=== PATIENT | female | born 1930 | race Caucasian/White ===

== ENCOUNTER 2016-07-25 10:05 | Inpatient (IN) | payer MEDICARE, BC ==
[2016-07-25] VITALS (7 sets, daily range): BP systolic 147–201; BP diastolic 61–89; PULSE 92–107; RESP 16–20; TEMP 97.5–98.3; O2SAT 96–99
[~2016-07-25] VITALS: Ht 160 cm; Wt 58.2 kg
[~2016-07-25 10:05] MED LIST: AMBI10TA PO; AMLO5TAB2 PO; APIX5TAB PO; CIPR250T2 PO; CLON0.1T PO; LATA0.002 EACH EYE; LEVO.1 PO; LOSA100T PO; NEXI40CA PO
--- NOTE | 2016-07-25 10:43 | PD ---
HPI Chief Complaint: generalized weakness Time Seen by Provider: 10:31 Travel History International Travel<30 days: No Contact w/Intl Traveler<30days: No Traveled to known affect area: No History of Present Illness HPI The patient was seen and examined in the presence of the nurse. This patient called the ambulance crew she was having generalized weakness. She's been having it for one month and she is not getting any better and was frustrated with it. She has poor appetite. She is on a blood thinner for PE. She is not short of breath. She denies fever or vomiting or diarrhea. She has chronic unsteady gait. I have warned her to use a walker given her blood thinner and unsteady gait. Symptoms severity is moderate. No alleviating factors. She denies rectal bleeding or melena. She reports having a normal colonoscopy many years ago and no history of GI bleeding in the last 20 years. 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) GERD: Yes Genitourinary: Yes Headaches: Yes Hiatal Hernia: Yes Hypertension: Yes Immune Disorder: No Implanted Vascular Access Dvce: No Kidney Stones: No Musculoskeletal: Yes Neurologic: Yes Psychiatric: No Reproductive: No Respiratory: Yes Immunizations Current: Yes Migraines: No Radiation Therapy: No Renal Failure: No Seizures: No Sickle Cell Disease: No Sleep Apnea: Yes Thyroid Disease: Yes Ulcer: Yes Past Surgical History Abdominal Surgery: Yes (ABDOMINAL TUMOR REMOVED) AICD: No Arteriovenous Shunt: No Cardiac Surgery: No Ear Surgery: No Endocrine Surgery: Yes Eye Surgery: No Genitourinary Surgery: Yes Gynecologic Surgery: Yes (HYSTERECTOMY) Hysterectomy: Yes Insulin Pump: No Joint Replacement: No Neurologic Surgery: No Oral Surgery: No Pacemaker: Yes (DEMAND) Thoracic Surgery: No Other Surgery: Yes Social History Alcohol Use: No Tobacco Use: No (FORMER) Substance Use: No Allergies-Medications (Allergen,Severity, Reaction): Coded Allergies: No Known Allergies (Verified , 05/22/16) Reported Meds & Prescriptions Reported Meds & Active Scripts Active Eliquis (Apixaban) 5 Mg Tab 5 Mg PO BID Reported Losartan (Losartan Potassium) 100 Mg Tab 100 Mg PO DAILY Metoprolol Tartrate 25 Mg Tab 25 Mg PO DAILY Hydrochlorothiazide 12.5 Mg Tab 12.5 Mg PO DAILY Amlodipine (Amlodipine Besylate) 5 Mg Tab 5 Mg PO DAILY Clonidine (Clonidine HCl) 0.1 Mg Tab 0.1 Mg PO TID PRN Review of Systems General / Constitutional: No: Fever Eyes: No: Visual changes HENT: No: Headaches Cardiovascular: No: Chest Pain or Discomfort Respiratory: No: Shortness of Breath Gastrointestinal: No: Abdominal Pain Genitourinary: No: Dysuria Musculoskeletal: Positive: Weakness, No: Pain Skin: No Rash Neurologic: Positive: Weakness Psychiatric: No: Depression Endocrine: No: Polydipsia Hematologic/Lymphatic: No: Easy Bruising Physical Exam Narrative GENERAL: Thin elderly well-developed patient in no apparent distress. SKIN: Warm and dry. HEAD: Atraumatic. Normocephalic. EYES: Pupils equal and round. No scleral icterus. No injection or drainage. ENT: No nasal bleeding or discharge. Mucous membranes pink and moist. NECK: Trachea midline. No JVD. CARDIOVASCULAR: Regular rate and rhythm. No murmur appreciated. RESPIRATORY: No accessory muscle use. Clear to auscultation. Breath sounds equal bilaterally. GASTROINTESTINAL: Abdomen soft, non-tender, nondistended. Hepatic and splenic margins not palpable. MUSCULOSKELETAL: No obvious deformities. No clubbing. No cyanosis. No edema. NEUROLOGICAL: Awake and alert. No obvious cranial nerve deficits. Motor grossly within normal limits. Normal speech. PSYCHIATRIC: Appropriate mood and affect; insight and judgment normal. Data Data Last Documented VS Vital Signs Date Time Temp Pulse Resp B/P Pulse Ox O2 Delivery O2 Flow Rate FiO2 07/25/16 10:41 97.8 107 18 153/66 96 Orders Iv Access Insert/Monitor (07/25/16 10:43) Complete Blood Count With Diff (07/25/16 10:43) Comprehensive Metabolic Panel (07/25/16 10:43) Urinalysis - C+S If Indicated (07/25/16 10:43) Admit Order (Ed Use Only) (07/25/16 11:32) Labs Laboratory Tests Test 07/25/16 07/25/16 10:50 11:33 White Blood Count 18.6 TH/MM3 Red Blood Count 3.00 MIL/MM3 Hemoglobin 7.9 GM/DL Hematocrit 24.7 % Mean Corpuscular Volume 82.4 FL Mean Corpuscular Hemoglobin 26.3 PG Mean Corpuscular Hemoglobin 31.9 % Concent Red Cell Distribution Width 15.3 % Platelet Count 792 TH/MM3 Mean Platelet Volume 6.6 FL Neutrophils (%) (Auto) 76.3 % Lymphocytes (%) (Auto) 16.3 % Monocytes (%) (Auto) 6.2 % Eosinophils (%) (Auto) 0.6 % Basophils (%) (Auto) 0.6 % Neutrophils # (Auto) 14.2 TH/MM3 Lymphocytes # (Auto) 3.0 TH/MM3 Monocytes # (Auto) 1.2 TH/MM3 Eosinophils # (Auto) 0.1 TH/MM3 Basophils # (Auto) 0.1 TH/MM3 CBC Comment AUTO DIFF Differential Comment AUTO DIFF CONFIRMED Ovalocytes 1+ Sodium Level 138 MEQ/L Potassium Level 4.7 MEQ/L Chloride Level 103 MEQ/L Carbon Dioxide Level 22.8 MEQ/L Anion Gap 12 MEQ/L Blood Urea Nitrogen 20 MG/DL Creatinine 0.83 MG/DL Estimat Glomerular Filtration 65 ML/MIN Rate Random Glucose 114 MG/DL Calcium Level 8.5 MG/DL Total Bilirubin 0.3 MG/DL Aspartate Amino Transf 31 U/L (AST/SGOT) Alanine Aminotransferase 13 U/L (ALT/SGPT) Alkaline Phosphatase 46 U/L Total Protein 6.3 GM/DL Albumin 2.7 GM/DL Urine Collection Type CATH Urine Color YELLOW Urine Turbidity CLEAR Urine pH 6.0 Urine Specific [place] 1.028 Urine Protein NEG mg/dL Urine Glucose (UA) NEG mg/dL Urine Ketones 80 OR GREATER mg/dL Urine Occult Blood NEG Urine Nitrite NEG Urine Bilirubin NEG Urine Leukocyte Esterase NEG Urine WBC 0-2 /hpf Urine Squamous Epithelial 0-5 /hpf Cells Urine Bacteria FEW /hpf Microscopic Urinalysis Comment CATH-CULTURE IND Urine Collection Time 11:33 MDM Medical Decision Making Medical Screen Exam Complete: Yes Emergency Medical Condition: Yes Medical Record Reviewed: Yes Differential Diagnosis Symptomatic anemia, UTI, dehydration Narrative Course I have reviewed the patient's electronic medical record. Her last hemoglobin on file is 9.6 drawn one month ago. 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 Reading says Magan dorantes but she has a regular sinus rhythm at 106 Patient has GI bleed on a blood thinner and is thin and old and frail and symptomatic anemia Will benefit from holding her blood thinner and a blood transfusion and GI workup I reviewed with hospitalist who will admit [facility] Point of Care Internal Pos. & Neg. Controls: Passed Fecal Specimen Occult Blood: Positive Diagnosis Primary Impression: GI bleeding Qualified Code: K92.2 - Gastrointestinal hemorrhage, unspecified gastrointestinal hemorrhage type Additional Impression: Symptomatic anemia Admitting Information Admitting Physician Requests: Admit Suraj Cueto MD Jul 25, 2016 10:43
[2016-07-25] MEDS ORDERED: HYDR12.56 PO (10:49)
[2016-07-25] MEDS ORDERED: METO25TA3 PO (10:49)
[2016-07-25] MEDS ORDERED: LOSA100T PO (10:49)
[2016-07-25 10:56] LABS: AUTOMATED NEUTROPHIL # 14.2 TH/MM3 (1.8-7.7); BASOPHIL # 0.1 TH/MM3 (0-0.2); BASOPHIL % 0.6 % (0.0-2.0); EOSINOPHIL # 0.1 TH/MM3 (0-0.4); EOSINOPHIL % 0.6 % (0.0-4.0); HEMATOCRIT 24.7 % (35.0-46.0); LYMPH % 16.3 % (9.0-44.0); MEAN CELL VOLUME 82.4 FL (80.0-100.0); MEAN CORPUSCULAR HEMOGLOBIN 26.3 PG (27.0-34.0); MEAN CORPUSCULAR HGB CONC 31.9 % (32.0-36.0); MONO % 6.2 % (0.0-8.0); NEUT % 76.3 % (16.0-70.0); PLATELET COUNT 792 TH/MM3 (150-450); RED CELL DISTRIBUTION WIDTH 15.3 % (11.6-17.2); WHITE BLOOD COUNT 18.6 TH/MM3 (4.0-11.0)
[2016-07-25 11:08] LABS: HEMO FLAGS AUTO DIFF
[2016-07-25 11:12] LABS: CHLORIDE 103 MEQ/L (98-107); SODIUM (NA) 138 MEQ/L (136-145)
[2016-07-25 11:15] LABS: ANION GAP 12 MEQ/L (5-15); BICARBONATE 22.8 MEQ/L (21.0-32.0)
[2016-07-25 11:16] LABS: BLOOD UREA NITROGEN 20 MG/DL (7-18)
[2016-07-25 11:18] LABS: POTASSIUM 4.7 MEQ/L (3.5-5.1)
[2016-07-25 11:19] LABS: ALT (GPT) 13 U/L (10-53); AST (GOT) 31 U/L (15-37); GLOMERULAR FILTRATION RATE 65 ML/MIN (>89)
[2016-07-25 11:20] LABS: TOTAL BILIRUBIN ADULT 0.3 MG/DL (0.2-1.0)
[2016-07-25 11:21] LABS: ALKALINE PHOSPHATASE 46 U/L (45-117)
[2016-07-25 11:31] LABS: OVALOCYTES 1+ (NORMAL); SCAN/DIFF AUTO DIFF CONFIRMED
[2016-07-25 11:40] LABS: BLOOD, URINE NEG (NEG); GLUCOSE,URINE NEG (NEG); NITRITE,URINE NEG (NEG)
[2016-07-25 11:48] LABS: KETONE, URINE 80 OR GREATER mg/dL (NEG); METHOD OF COLLECTION CATH; URINE COLOR YELLOW (YELLW/STRAW)
[2016-07-25 11:49] LABS: BACTERIA, URINE FEW /hpf; COMMENT (UR) CATH-CULTURE IND; CULTURE IF INDICATED CATH CULTURE IND; SQUAMOUS EPITHELIAL CELL URINE 0-5 /hpf (0-5); WBC, URINE 0-2 /hpf (0-5)
[2016-07-25] MEDS ORDERED: SODIUM CHLORIDE 0.9% FLUSH 5 ML FLUSH FLUSH PRN ×2 (12:30→14:45)
--- NOTE | 2016-07-25 14:38 | HHI.HP ---
[facility] Primary Care Physician Trevin Barajas MD Admission Diagnosis GI bleed, symptomatic anemia Diagnoses: (1) Symptomatic anemia Diagnosis: Principal (2) Heme positive stool Diagnosis: Principal (3) Hypertension Diagnosis: Secondary (4) Pulmonary embolism Diagnosis: Secondary (5) Hypothyroidism Diagnosis: Secondary (6) GERD (gastroesophageal reflux disease) (7) Leucocytosis Diagnosis: Secondary Chief Complaint: Weakness Travel History International Travel<30 Days: No Contact w/Intl Traveler <30 Da: No Traveled to Known Affected Are: No History of Present Illness 85 year-old female with known history of hypertension, hypothyroidism , gastroesophageal reflux, sick sinus syndrome status post permanent pacemaker placement , pulmonary emboli who presented to hospital because of generalized weakness. Patient is known to me from previous admission. Patient states that she just has not had any injuries since she was admitted back in April and diagnosed with pneumonia. Subsequently since then she has had previous admission in found to have pulmonary emboli and started on Eliquis. Patient states that she has had dark color stools ever since then. Records indicate the patient has had outpatient Hemoccult done on 07/05/16 which was positive, requested by Dr. Loepz. Patient states that she has had no energy, no appetite, cough. Patient had workup done emergency department found to have hemoglobin of 7.9. Heme positive stools and is recommended the patient be admitted for further evaluation with blood transfusions and GI consultation. Review of Systems Constitutional: DENIES: Diaphoretic episodes, Fatigue, Fever, Weight gain, Weight loss, Chills, Dizziness, Change in appetite, Night Sweats Eyes: DENIES: Blurred vision, Diplopia, Eye inflammation, Eye pain, Vision loss , Double Vision Ears, nose, mouth, throat: DENIES: Vertigo, Nasal discharge, Throat pain, Ear Pain, Running Nose, Sinus Pain Respiratory: DENIES: Apneas, Cough, Snoring, Wheezing, Hemoptysis, Sputum production, Shortness of breath Cardiovascular: DENIES: Chest pain, Palpitations, Syncope, Dyspnea on Exertion , Lower Extremity Edema, Orthopnea Gastrointestinal: COMPLAINS OF: Black stools, DENIES: Abdominal pain, Bloody stools, Constipation, Diarrhea, Nausea, Vomiting, Difficulty Swallowing, Anorexia Neurologic: DENIES: Abnormal gait, Headache, Localized weakness, Paresthesias, Seizures, Speech Problems, Tremor, Poor Balance Past Family Social History Past Medical History Hypertension Hypothyroidism Gastroesophageal reflux Sick sinus syndrome status post pacemaker History GI bleed History of stomach polyps Pulmonary emboli Past Surgical History Hysterectomy Permanent pacemaker placement EGDs Gastric surgery for GI bleeding Reported Medications Reported Meds & Active Scripts Active Eliquis (Apixaban) 5 Mg Tab 5 Mg PO BID Reported Losartan (Losartan Potassium) 100 Mg Tab 100 Mg PO DAILY Metoprolol Tartrate 25 Mg Tab 25 Mg PO DAILY Hydrochlorothiazide 12.5 Mg Tab 12.5 Mg PO DAILY Amlodipine (Amlodipine Besylate) 5 Mg Tab 5 Mg PO DAILY Clonidine (Clonidine HCl) 0.1 Mg Tab 0.1 Mg PO TID PRN Allergies: Coded Allergies: No Known Allergies (Verified , 05/22/16) Family History Reviewed is significant for father with high blood pressure Social History Patient states that she quit smoking in the 70s, prior to that she smoked up to a pack a cigarettes a day since she was 22. Denies any alcohol or illicit drugs Physical Exam Vital Signs Vital Signs Date Time Temp Pulse Resp B/P Pulse Ox O2 Delivery O2 Flow Rate FiO2 07/25/16 12:30 97.5 98 20 162/79 99 07/25/16 12:12 98 16 186/67 98 Room Air 07/25/16 10:41 97.8 107 18 153/66 96 Physical Exam GENERAL: Well-developed, well-nourished, in no acute distress. alert and orientated HEENT: Head is normocephalic without any lesions or masses noted. Facial features are symmetric. Eyes: Pupils equal round reactive to light. Extraocular muscles are intact. Conjunctivae were clear. Oropharyngeal: Pharynx without any erythema edema. Tongue is midline without deviation. Buccal mucosa is moist without any masses or lesions NECK: Supple without any masses. Trachea midline no deviation. No JVD, no bruits are appreciated CARDIAC: Regular rhythm, regular rate. S1/S2 are heard. No murmurs gallops or rubs. LUNGS: Clear to auscultation bilaterally. No wheeze, rhonchi or rales. No use of accessory muscles on inspiration or expiration. ABDOMEN: Soft, nontender. Nondistended. Bowel sounds heard in all 4 quadrants. No organomegaly or masses. Negative rebound, negative guarding EXTREMITIES: No edema, pulses are equal bilaterally. No cyanosis or clubbing NEUROLOGY: Mood and affect appear appropriate. Cranial nerves II through XII grossly intact. Muscle strength 5/5 in upper and lower extremities bilaterally. Deep tendon reflexes are 2+ in upper and lower extremities bilaterally. Laboratory Laboratory Tests Test 07/25/16 07/25/16 10:50 11:33 White Blood Count 18.6 Red Blood Count 3.00 Hemoglobin 7.9 Hematocrit 24.7 Mean Corpuscular Volume 82.4 Mean Corpuscular Hemoglobin 26.3 Mean Corpuscular Hemoglobin 31.9 Concent Red Cell Distribution Width 15.3 Platelet Count 792 Mean Platelet Volume 6.6 Neutrophils (%) (Auto) 76.3 Lymphocytes (%) (Auto) 16.3 Monocytes (%) (Auto) 6.2 Eosinophils (%) (Auto) 0.6 Basophils (%) (Auto) 0.6 Neutrophils # (Auto) 14.2 Lymphocytes # (Auto) 3.0 Monocytes # (Auto) 1.2 Eosinophils # (Auto) 0.1 Basophils # (Auto) 0.1 CBC Comment AUTO DIFF Differential Comment AUTO DIFF CONFIRMED Ovalocytes 1+ Sodium Level 138 Potassium Level 4.7 Chloride Level 103 Carbon Dioxide Level 22.8 Anion Gap 12 Blood Urea Nitrogen 20 Creatinine 0.83 Estimat Glomerular Filtration 65 Rate Random Glucose 114 Calcium Level 8.5 Total Bilirubin 0.3 Aspartate Amino Transf 31 (AST/SGOT) Alanine Aminotransferase 13 (ALT/SGPT) Alkaline Phosphatase 46 Total Protein 6.3 Albumin 2.7 Urine Collection Type CATH Urine Color YELLOW Urine Turbidity CLEAR Urine pH 6.0 Urine Specific [place] 1.028 Urine Protein NEG Urine Glucose (UA) NEG Urine Ketones 80 OR GREATER Urine Occult Blood NEG Urine Nitrite NEG Urine Bilirubin NEG Urine Leukocyte Esterase NEG Urine WBC 0-2 Urine Squamous Epithelial 0-5 Cells Urine Bacteria FEW Microscopic Urinalysis Comment CATH-CULTURE IND Urine Collection Time 11:33 Date/Time Procedure Status Source Growth 07/25/16 11:33 Urine Culture Received Urine Catheterized Urine Pending Result Diagram: 07/25/16 1050 07/25/16 1050 Assessment and Plan Assessment and Plan Systemic inflammatory response syndrome, likely related to GI bleed Patient met criteria with sinus tachycardia, leukocytosis. No signs of infection Awaiting urine culture for further evaluation Heme positive stool, symptomatic anemia, complicated by Eliquis Hold anticoagulation at this time Continue trend hemoglobin and hematocrit Transfuse if hemoglobin below 7.0 Consult GI for further recommendations, will need upper and lower endoscopy Pulmonary emboli Anticoagulation has been held this time Resume anticoagulation if cleared by GI Leukocytosis Continue follow CBC Hypertension Continue home medications DVT prevention Sequential compression devices, avoid chemical prophylaxis secondary to GI bleed Physician Certification 2 Midnight Certification Type: Admission for Inpatient Services Order for Inpatient Services The services are ordered in accordance with Medicare regulations or non- Medicare payer requirements, as applicable. In the case of services not specified as inpatient-only, they are appropriately provided as inpatient services in accordance with the 2-midnight benchmark. Estimated LOS (days): 2 days is the estimated time the patient will need to remain in the hospital, assuming treatment plan goals are met and no additional complications. Post-Hospital Plan: Not yet determined Medical Decision Making Impression and Plan The exam, history, and the medical decision-making described in the above note were completed with my assistance as the dictating practitioner. I attest that I had a [id number] encounter with the patient on the same day, and personally performed all of the history, exam, or medical decision making. I reviewed and agree with the plan. We'll follow for further evaluation of GI bleed Problem Qualifiers (1) Hypertension: Qualified Code: I15.9 - Secondary hypertension (2) Pulmonary embolism: Qualified Code: I26.99 - Other pulmonary embolism without acute cor pulmonale, unspecified chronicity (3) Hypothyroidism: Qualified Code: E03.9 - Hypothyroidism, unspecified type (4) GERD (gastroesophageal reflux disease): Qualified Code: K21.9 - Gastroesophageal reflux disease, esophagitis presence not specified (5) Leucocytosis: Qualified Code: D72.829 - Leukocytosis, unspecified type Suraj Allen Jul 25, 2016 14:38 Tiffanie Paul MD Jul 25, 2016 15:01
[2016-07-25] MEDS: PANTOPRAZOLE SODIUM 40 MG VIAL IV SCH ×2 (15:57→20:21)
[2016-07-25] MEDS: SODIUM CHLOR 0.9% 1000 ML INJ 1,000 ML IV SCH (15:58)
[2016-07-25] MEDS ORDERED: PEG (High)/E-LYTE SOLN 4000 ML BTL PO ONE (16:00)
--- NOTE | 2016-07-25 17:22 | PD.CONS ---
HPI History of Present Illness This is a 85 year old female who was admitted for C/O generalized weakness. She states she has been nauseated and vomited up blood which was dark with some pink tinged emesis as well. She has had black stools for 2 weeks and had heme positive stools. Denies abdominal pain or nausea today. H&H low at 7.9 and 24.7. She has a PMH of a pulmonary emboli and has been on Eliquis since April. She has a history of GERD, GI bleed in the past resulting in a gastric surgery and Hx of stomach polyps. Last EGD was about 10 years ago and colonoscopy was about 10 years ago and thinks she may have had a polyp. PFSH Past Medical History Hypertension Hypothyroidism Gastroesophageal reflux Sick sinus syndrome status post pacemaker History GI bleed History of stomach polyps Pulmonary emboli Past Surgical History Hysterectomy Permanent pacemaker placement EGDs/colonoscopy Gastric surgery for GI bleeding Coded Allergies: No Known Allergies (Verified , 05/22/16) Medications Reported Meds & Active Scripts Active Eliquis (Apixaban) 5 Mg Tab 5 Mg PO BID Reported Losartan (Losartan Potassium) 100 Mg Tab 100 Mg PO DAILY Metoprolol Tartrate 25 Mg Tab 25 Mg PO DAILY Hydrochlorothiazide 12.5 Mg Tab 12.5 Mg PO DAILY Amlodipine (Amlodipine Besylate) 5 Mg Tab 5 Mg PO DAILY Clonidine (Clonidine HCl) 0.1 Mg Tab 0.1 Mg PO TID PRN Family History Reviewed is significant for father with high blood pressure and CVA Social History Patient states that she quit smoking in the 70s, prior to that she smoked up to a pack a cigarettes a day since she was 22. Denies any alcohol or illicit drugs Review of Systems Constitutional: COMPLAINS OF: Fatigue Gastrointestinal: COMPLAINS OF: Black stools, Nausea, Vomiting, Hematemesis GI Exam Vitals I&O Vital Signs Date Time Temp Pulse Resp B/P Pulse Ox O2 Delivery O2 Flow Rate FiO2 07/25/16 12:30 97.5 98 20 162/79 99 07/25/16 12:12 98 16 186/67 98 Room Air 07/25/16 12:00 97.5 98 20 162/79 99 07/25/16 10:41 97.8 107 18 153/66 96 Laboratory Test 07/25/16 07/25/16 10:50 11:33 White Blood Count 18.6 TH/MM3 Red Blood Count 3.00 MIL/MM3 Hemoglobin 7.9 GM/DL Hematocrit 24.7 % Mean Corpuscular Volume 82.4 FL Mean Corpuscular Hemoglobin 26.3 PG Mean Corpuscular Hemoglobin 31.9 % Concent Red Cell Distribution Width 15.3 % Platelet Count 792 TH/MM3 Mean Platelet Volume 6.6 FL Neutrophils (%) (Auto) 76.3 % Lymphocytes (%) (Auto) 16.3 % Monocytes (%) (Auto) 6.2 % Eosinophils (%) (Auto) 0.6 % Basophils (%) (Auto) 0.6 % Neutrophils # (Auto) 14.2 TH/MM3 Lymphocytes # (Auto) 3.0 TH/MM3 Monocytes # (Auto) 1.2 TH/MM3 Eosinophils # (Auto) 0.1 TH/MM3 Basophils # (Auto) 0.1 TH/MM3 CBC Comment AUTO DIFF Differential Comment AUTO DIFF CONFIRMED Ovalocytes 1+ Sodium Level 138 MEQ/L Potassium Level 4.7 MEQ/L Chloride Level 103 MEQ/L Carbon Dioxide Level 22.8 MEQ/L Anion Gap 12 MEQ/L Blood Urea Nitrogen 20 MG/DL Creatinine 0.83 MG/DL Estimat Glomerular Filtration 65 ML/MIN Rate Random Glucose 114 MG/DL Calcium Level 8.5 MG/DL Total Bilirubin 0.3 MG/DL Aspartate Amino Transf 31 U/L (AST/SGOT) Alanine Aminotransferase 13 U/L (ALT/SGPT) Alkaline Phosphatase 46 U/L Total Protein 6.3 GM/DL Albumin 2.7 GM/DL Urine Collection Type CATH Urine Color YELLOW Urine Turbidity CLEAR Urine pH 6.0 Urine Specific [place] 1.028 Urine Protein NEG mg/dL Urine Glucose (UA) NEG mg/dL Urine Ketones 80 OR GREATER mg/dL Urine Occult Blood NEG Urine Nitrite NEG Urine Bilirubin NEG Urine Leukocyte Esterase NEG Urine WBC 0-2 /hpf Urine Squamous Epithelial 0-5 /hpf Cells Urine Bacteria FEW /hpf Microscopic Urinalysis Comment CATH-CULTURE IND Urine Collection Time 11:33 Date/Time Procedure Status Source Growth 07/25/16 11:33 Urine Culture Received Urine Catheterized Urine Pending Physical Examination HEENT: Pupils round and reactive to light; normocephalic; atraumatic; no jaundice. Throat is clear. NECK: Neck is supple, no JVD, no lymphadenopathy. CHEST: Chest is clear to auscultation and percussion. CARDIAC: Regular rate and rhythm with no murmur gallop or rubs. ABDOMEN: Soft, nondistended, nontender; no hepatosplenomegaly; bowel sounds are present in all four quadrants. EXTREMITIES: No clubbing, cyanosis, or edema. SKIN: Normal; no rash; no jaundice. 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 Assessment and Plan Assessment: (1) GI bleeding Plan: Hx black stools Heme positive stools hematemesis Hx GI bleed in past Has been on Eliquis (2) Acute blood loss anemia Plan: H&H is 7.9/24.7 Anemia secondary to GI bleed (3) GERD (gastroesophageal reflux disease) Plan: Continue PPI Plan This is an 85 year old female admitted with an acute GI bleed with heme positive stools, black stools and hematemesis. Has PMH of GI bleed, GERD and gastric polyps with a surgery in the past for bleeding. Plan -Follow H&H closely, transfuse PRBC's to keep H&H> 7.0 -Continue PPI -Clear liquid diet, NPO after midnight -Start colon prep -Obtain consent for EGD/colonoscopy in AM -Colonoscopy/EGD in am -Supportive care Problem Qualifiers (1) GI bleeding: Qualified Code: K92.2 - Gastrointestinal hemorrhage, unspecified gastrointestinal hemorrhage type (2) GERD (gastroesophageal reflux disease): Qualified Code: K21.9 - Gastroesophageal reflux disease, esophagitis presence not specified Tasneem Cano Jul 25, 2016 17:22
[2016-07-25 17:45] LABS: HEMATOCRIT 23.1 % (35.0-46.0)
[2016-07-25 17:49] LABS: REVIEW FLAG FINAL
[2016-07-25] MEDS: SODIUM CHLORIDE 0.9% FLUSH 5 ML FLUSH FLUSH SCH (20:21)
[2016-07-25] MEDS: SUCRALFATE 1 GM/10 ML CUP PO SCH (20:21)
[2016-07-25] MEDS ORDERED: SODIUM CHLORIDE 0.9% FLUSH 5 ML FLUSH FLUSH SCH (21:00)
[2016-07-25] MEDS ORDERED: cloNIDine HCL 0.1 MG TAB PO ONE (22:15)
[2016-07-25 22:57] LABS: HEMATOCRIT 22.6 % (35.0-46.0)
[2016-07-25] MEDS ORDERED: PANTOPRAZOLE INJ 80 MG in SODIUM CHLORIDE 0.9% INJ 100 ML IV SCH (23:00)
[2016-07-25 23:14] LABS: REVIEW FLAG FINAL
[2016-07-26] VITALS (10 sets, daily range): BP systolic 133–186; BP diastolic 61–79; PULSE 76–100; RESP 16–20; TEMP 96.4–98.4; O2SAT 95–99
[2016-07-26] MEDS ORDERED: PANTOPRAZOLE INJ 80 MG in SODIUM CHLORIDE 0.9% INJ 100 ML IV SCH ×2
[2016-07-26 05:34] LABS: AUTOMATED NEUTROPHIL # 8.5 TH/MM3 (1.8-7.7); BASOPHIL # 0.2 TH/MM3 (0-0.2); BASOPHIL % 1.4 % (0.0-2.0); EOSINOPHIL # 0.2 TH/MM3 (0-0.4); EOSINOPHIL % 1.3 % (0.0-4.0); LYMPHOCYTE # 2.5 TH/MM3 (1.0-4.8); MEAN CORPUSCULAR HEMOGLOBIN 26.1 PG (27.0-34.0); MEAN CORPUSCULAR HGB CONC 31.8 % (32.0-36.0); MONO % 3.9 % (0.0-8.0); NEUT % 72.4 % (16.0-70.0); PLATELET COUNT 550 TH/MM3 (150-450); RED BLOOD COUNT 2.53 MIL/MM3 (4.00-5.30); WHITE BLOOD COUNT 11.9 TH/MM3 (4.0-11.0)
[2016-07-26 05:45] LABS: HEMO FLAGS DIFF FINAL
[2016-07-26 05:47] LABS: HEMATOCRIT 20.8 % (35.0-46.0)
[2016-07-26] MEDS ORDERED: FUROSEMIDE 20 MG/2 ML VIAL IV PRN (06:00)
[2016-07-26] MEDS ORDERED: ACETAMINOPHEN 325 MG TAB PO PRN (06:00)
[2016-07-26] MEDS ORDERED: SODIUM CHLOR 0.9% 250 ML INJ 250 ML IV ONE (06:00)
[2016-07-26] MEDS ORDERED: diphenhydrAMINE HCL 25 MG CAP PO PRN (06:00)
[2016-07-26] MEDS: SUCRALFATE 1 GM/10 ML CUP PO SCH ×4 (06:21→20:34)
[2016-07-26] MEDS ORDERED: PROPOFOL 200 MG/20 ML AMP IV ONE (07:12)
[2016-07-26] MEDS ORDERED: LOSARTAN 50 MG TAB PO SCH ×2 (09:00→21:00)
[2016-07-26] MEDS ORDERED: HYDROCHLOROTHIAZIDE 12.5 MG CAP PO SCH ×2 (09:00→21:00)
[2016-07-26] MEDS: SODIUM CHLORIDE 0.9% FLUSH 5 ML FLUSH FLUSH SCH ×2 (09:00→20:34)
[2016-07-26] MEDS: SODIUM CHLOR 0.9% 1000 ML INJ 1,000 ML IV SCH ×3 (09:59→20:36)
[2016-07-26] MEDS: METOPROLOL TARTRATE 25 MG TAB PO SCH ×2 (09:59→10:23)
[2016-07-26] MEDS: amLODIPine BESYLATE 5 MG TAB PO SCH ×2 (09:59→10:23)
--- NOTE | 2016-07-26 15:18 | HHI.PR ---
Subjective Remarks Patient seen and examined today. Spent extended amount of time discussing with the family the patient's condition, care, approximate time of healing, diet, nutrition, strength, physical therapy, rehabilitation. Patient did undergo endoscopy today, however was not able to tolerate prep for colonoscopy due to esophageal pain while doing the prep. Family is hoping that there is an alternative prep they can be performed so they can have the procedure done while she is in the hospital still. They're requesting design tech consultation to help with diet management. Also inquiring about resumption of Eliquis because patient has a pulmonary emboli. Discussed with family appropriate nutritional management. They do not feel that the patient was survived at her current level of eating while her esophagus heals. Notified them of additional medications to help stimulate appetite. If that doesn't work then worst-case scenario would be feeding tube. Objective Vitals Vital Signs Date Time Temp Pulse Resp B/P Pulse Ox O2 Delivery O2 Flow Rate FiO2 07/26/16 12:38 98.4 76 17 157/68 99 07/26/16 12:18 164/68 07/26/16 12:03 98.1 82 16 186/79 99 07/26/16 12:00 98.0 96 20 169/65 96 07/26/16 10:12 100 133/63 07/26/16 07:45 98 16 164/67 96 07/26/16 07:40 98 16 148/67 95 07/26/16 07:35 98.0 98 16 154/61 96 07/26/16 04:00 96.4 87 20 135/61 98 07/26/16 00:00 97.9 94 20 143/66 97 07/25/16 21:31 196/74 07/25/16 20:00 98.3 99 20 201/89 98 07/25/16 16:00 98.2 92 18 147/61 98 I/O 07/25/16 07/25/16 07/25/16 07/26/16 07/26/16 07/26/16 07:00 15:00 23:00 07:00 15:00 23:00 Intake Total 590 ml 0 ml 400 ml Output Total 300 ml Balance 590 ml 0 ml 100 ml Intake Oral 590 ml 0 ml Other 400 ml Output Urine Total 300 ml # Voids 3 1 # Bowel Movements 0 0 1 Result Diagram: 07/26/16 0500 07/25/16 1050 Objective Remarks GENERAL: Well-developed, well-nourished, in no acute distress. alert and orientated HEENT: Head is normocephalic without any lesions or masses noted. Facial features are symmetric. Eyes: Extraocular muscles are intact. Conjunctivae were clear. NECK: Supple without any masses. Trachea midline no deviation. No JVD, CARDIAC: Regular rhythm, regular rate. S1/S2 are heard. No murmurs gallops or rubs. LUNGS: Clear auscultation bilaterally. No wheeze, rhonchi or rales. No use of accessory muscles on inspiration or expiration. ABDOMEN: Soft, nontender. Nondistended. Bowel sounds heard in all 4 quadrants. No organomegaly or masses. Negative rebound, negative guarding EXTREMITIES: No edema, pulses are equal bilaterally. No cyanosis or clubbing NEUROLOGY: Mood and affect appear appropriate. Cranial nerves II through XII grossly intact. Moving all extremities, speech is clear Urinary Catheter: No Vascular Central Line Catheter: No A/P Assessment and Plan Systemic inflammatory response syndrome, likely related to GI bleed, resolved Patient met criteria with sinus tachycardia, leukocytosis. No signs of infection Urine culture no growth for 24 hours Heme positive stool, symptomatic anemia, complicated by Eliquis Hold anticoagulation at this time Continue trend hemoglobin and hematocrit Transfuse if hemoglobin below 7.0 Consult GI for further recommendations, Patient did undergo upper endoscopy which showed severe grade D esophagitis which could be the reason of the anemia in combination with anticoagulation. Recommending avoiding NSAIDs, Protonix daily, repeat EGD in one month. Colonoscopy was not able be finished due to stool in the sigmoid colon. There was a polyp in the rectum that was removed. Recommending colonoscopy in a few days with appropriate prep and off anticoagulation. Decreased appetite secondary to esophageal pain Recommended Remeron for appetite stimulant and weight gain Consulted design tech at family request for diet recommendations Pulmonary emboli Anticoagulation has been held this time [employer] Software Engineer recommending that sap architect reconsulted for anticoagulation recommendations Leukocytosis Continue follow CBC Hypertension Continue home medications DVT prevention Sequential compression devices, avoid chemical prophylaxis secondary to GI bleed Written by Suraj Allen PA-C, acting as scribe for Dr. Berg on 07/26/16 at 1549. The documentation accurately reflects the work and decisions performed face-to- face by Dr. Berg on 07/26/16 at 1545. Suraj Allen Jul 26, 2016 15:18
--- NOTE | 2016-07-26 15:34 | EKG ---
Date Performed: 07/25/2016 Time Performed: 10:16:58 PTAGE: 85 years EKG: Sinus rhythm Leftward axis Low QRS voltages in precordial leads Compared to prior tracing no significant change A bnormal ECG NO PREVIOUS TRACING DOCTOR: Chance Mc Interpretating Date/Time 07/26/2016 15:33:59
--- NOTE | 2016-07-26 15:55 | HHI.GIFU ---
Subjective Remarks patient dropped her HGB no sign of bleed, did not tolerate to prep Objective Vitals I&O Vital Signs Date Time Temp Pulse Resp B/P Pulse Ox O2 Delivery O2 Flow Rate FiO2 07/26/16 12:38 98.4 76 17 157/68 99 07/26/16 12:18 164/68 07/26/16 12:03 98.1 82 16 186/79 99 07/26/16 12:00 98.0 96 20 169/65 96 07/26/16 10:12 100 133/63 07/26/16 07:45 98 16 164/67 96 07/26/16 07:40 98 16 148/67 95 07/26/16 07:35 98.0 98 16 154/61 96 07/26/16 04:00 96.4 87 20 135/61 98 07/26/16 00:00 97.9 94 20 143/66 97 07/25/16 21:31 196/74 07/25/16 20:00 98.3 99 20 201/89 98 07/25/16 16:00 98.2 92 18 147/61 98 I/O 07/25/16 07/25/16 07/25/16 07/26/16 07/26/16 07/26/16 07:00 15:00 23:00 07:00 15:00 23:00 Intake Total 590 ml 0 ml 400 ml Output Total 300 ml Balance 590 ml 0 ml 100 ml Intake Oral 590 ml 0 ml Other 400 ml Output Urine Total 300 ml # Voids 3 1 # Bowel Movements 0 0 1 Laboratory Laboratory Tests Test 07/25/16 07/25/16 07/26/16 07/26/16 17:40 22:50 05:00 08:30 Hemoglobin 7.4 7.2 6.6 Hematocrit 23.1 22.6 20.8 White Blood Count 11.9 Red Blood Count 2.53 Mean Corpuscular Volume 82.0 Mean Corpuscular Hemoglobin 26.1 Mean Corpuscular Hemoglobin 31.8 Concent Red Cell Distribution Width 16.0 Platelet Count 550 Mean Platelet Volume 6.5 Neutrophils (%) (Auto) 72.4 Lymphocytes (%) (Auto) 21.0 Monocytes (%) (Auto) 3.9 Eosinophils (%) (Auto) 1.3 Basophils (%) (Auto) 1.4 Neutrophils # (Auto) 8.5 Lymphocytes # (Auto) 2.5 Monocytes # (Auto) 0.5 Eosinophils # (Auto) 0.2 Basophils # (Auto) 0.2 CBC Comment DIFF FINAL Differential Comment Blood Type O NEGATIVE Antibody Screen NEGATIVE Crossmatch Leukocyte-Reduced Red Blood Cells Blood Bank Comment Test 07/26/16 08:40 Blood Type O NEGATIVE Date/Time Procedure Status Source Growth 07/25/16 11:33 Urine Culture - Preliminary Resulted Urine Catheterized Urine NO GROWTH IN 24 HOURS. Physical Exam HEENT: Pupils round and reactive to light; normocephalic; atraumatic; no jaundice. Throat is clear. NECK: Neck is supple, no JVD, no lymphadenopathy. CHEST: Chest is clear to auscultation and percussion. CARDIAC: Regular rate and rhythm with no murmur gallop or rubs. ABDOMEN: Soft, nondistended, nontender; no hepatosplenomegaly; bowel sounds are present in all four quadrants. EXTREMITIES: No clubbing, cyanosis, or edema. SKIN: Normal; no rash; no jaundice. STARBUCKS CLERK: No focal deficits; alert and oriented times three. Assessment and Plan Assessment: (1) GI bleeding Plan: Hx black stools Heme positive stools hematemesis Hx GI bleed in past Has been on Eliquis (2) Acute blood loss anemia Plan: H&H is 7.9/24.7 Anemia secondary to GI bleed (3) GERD (gastroesophageal reflux disease) Plan: Continue PPI Plan This is an 85 year old female admitted with an acute GI bleed with heme positive stools, black stools and hematemesis. Has PMH of GI bleed, GERD and gastric polyps with a surgery in the past for bleeding. Plan -Follow H&H closely, transfuse PRBC's to keep H&H> 7.0 -Continue PPI -Clear liquid diet, NPO after midnight -Start colon prep -Obtain consent for EGD/colonoscopy in AM -Colonoscopy/EGD in am -Supportive care Physician Comments 07-26-16 patient dropped HGB today, no sign of bleed, she had EGD with sever esophagitis and possible Medina's she will need to be on PPI and will need EGD in few wks also incomplete colonoscopy but I saw a polyp in rectum was not removed because she is on anticoagulation, patient had recent PE, if family wants her to have this as inpatient I recommend hematology consult for anticoagulation until colonoscopy is done. Problem Qualifiers (1) GI bleeding: Qualified Code: K92.2 - Gastrointestinal hemorrhage, unspecified gastrointestinal hemorrhage type (2) GERD (gastroesophageal reflux disease): Qualified Code: K21.9 - Gastroesophageal reflux disease, esophagitis presence not specified Devendra Plaza MD Jul 26, 2016 15:54
[2016-07-26 19:25] LABS: HEMATOCRIT 32.5 % (35.0-46.0); REVIEW FLAG FINAL
[2016-07-26 20:13] LABS: FERRITIN 28 NG/ML (8-252); TRANSFERRIN IRON PROFILE 234 MG/DL (200-360)
[2016-07-26] MEDS ORDERED: MIRTAZAPINE 15 MG TAB PO SCH (21:00)
--- NOTE | 2016-07-26 22:01 | MB ---
cc: TIMOTHY PAPPAS M.D. DATE OF CONSULTATION: 07/26/2016 REFERRING PHYSICIAN: NADIA REASON FOR CONSULTATION: Evaluation of severe anemia. HISTORY OF PRESENT ILLNESS Janet is a pleasant 85-year-old female. She is under the care of Dr. Loza for anemia as well as pulmonary embolism which was diagnosed about a month ago. The patient was admitted to the hospital with left-sided chest pain on [place] time. The cardiac etiology of the chest pain was ruled out. She had a CT angiogram of the chest which showed pulmonary embolism. She was started on heparin. Dr. Loza was consulted. The patient had a Doppler ultrasound of both lower legs which did not show any DVT. This was her first episode of unprovoked pulmonary embolism. Dr. Loza has recommended Eliquis 5 milligrams once a day for the first one to two weeks and then 2.5 milligrams twice a day. The patient was discharged to home. She saw her primary care physician, Dr. Barajas. Dr. Barajas has advised the patient to cut back on the Eliquis to 2.5 milligrams twice a day which was done ten days ago. The patient was doing fine up until a few days ago she started to notice blood in the stool. She continues to notice blood and it was tarry blood in the stool. With that, she came to the emergency room. In the emergency room yesterday the CBC showed white count of 18.6, hemoglobin 7.9, hematocrit 24.7, platelet count is 792. GI was consulted. Dr. Plaza saw the patient. The stools were Hemoccult positive. He did the upper endoscopy and colonoscopy. The upper endoscopy showed esophagitis and no bleeding sites were noted. The colonoscopy was incomplete due to the poor preparation. The patient is currently receiving second unit of blood transfusion. I have been asked to see the patient for the anemia. The patient is feeling better with the blood transfusion. She stated that she is planning to go home tomorrow if her hemoglobin improves. She denies any weight loss. She denies any anorexia. PAST MEDICAL HISTORY: 1. Pulmonary embolism diagnosed a month ago with no lower extremity DVT. 2. History of normochromic, normocytic anemia. 3. Cardiac arrhythmia. 4. Gastroesophageal reflux disease. 5. Hypertension. 6. Hypothyroidism. 7. Glaucoma. PAST SURGICAL HISTORY: 1. Permanent pacemaker placement. 2. Hysterectomy. 3. Cataract. 4. 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 ALLERGIES: NONE. MEDICATIONS: Please see EMR. FAMILY HISTORY: Noncontributory. SOCIAL HISTORY: The patient is , lives with her who was present at the bedside. The patient does not smoke cigarettes, does not drink alcohol. PHYSICAL EXAMINATION: The patient is a well-developed very pleasant elderly white female in no apparent distress. Vital signs: Temperature 97.2, heart rate is 91, blood pressure 160/71. HEENT: PERRLA, EOMI, anicteric. No oral lesions noted. Neck: Supple. There is no cervical, supraclavicular, axillary lymphadenopathy noted. Lungs: Clear. No wheezing, rhonchi or rales. Heart: Regular rate and rhythm. Abdomen: Soft, nontender. No other splenomegaly. Extremities: No pedal edema. Neurology: Awake, alert, oriented times three. Skin: No significant lesions are noted. ASSESSMENT 1. Acute anemia due to GI bleeding. 2. Tarry black stool due to the GI bleeding. 3. Pulmonary embolism diagnosed roughly five weeks ago and the patient was on Eliquis 2.5 milligrams twice a day. PLAN I have reviewed her available records and I have discussed with the patient and her regarding the anemia. The patient came in yesterday and her hemoglobin was 7.9, last night it was 7.2 and this morning it dropped to 6.6. GI was consulted. The patient underwent upper endoscopy which showed severe esophagitis and Medina's esophagus but there were no bleeding sites noted. Colonoscopy was attempted but it was incomplete due to the poor bowel prep. The patient stated that she was unable to drink the bowel prep. The patient is receiving a second blood transfusion and repeat CBC is pending. I will order the iron studies as she has previous history of iron deficiency anemia. I will also check the B12 and folate. When she came in yesterday her white count was 18.6, today her white count is 11.9, the platelet count was 792, now her platelet count is 550. I think she has reactive leukocytosis and reactive thrombocytosis due to the anemia. The differential count is normal except she has mild neutrophilia with absolute neutrophil count of 8500. There are no immature cells or peripheral blasts noted. The patient still has tarry black stools. GI has been following her. Eliquis has been put on hold. Once the GI bleeding resolves, then anticoagulation could be resumed because of her recent history of pulmonary embolism which was unprovoked. The choice of anticoagulants is going to be difficult with the oral anticoagulant due to the GI bleeding and her advanced age of 85. My recommendation is that we should treat her with the Coumadin. The patient also heard about Coumadin and she preferred to try that instead of the Eliquis again. The CBC is pending after the second unit of blood transfusion per patient's RN. Our team will follow her while she is in the hospital. I will notify her primary wic site coordinator, Dr. Loza, of patient's admission. Thank you for asking my opinion. Johnathan Pappas MD /ARDHA /9:20 PM /9:38 PM
[2016-07-27] VITALS: BP 158/78; PULSE 83; RESP 20; TEMP 97.1; O2SAT 97
[2016-07-27 04:00] VITALS: BP 158/76; PULSE 83; RESP 20; TEMP 96.2; O2SAT 97
[2016-07-27 05:56] LABS: BASOPHIL # 0.1 TH/MM3 (0-0.2); BASOPHIL % 0.5 % (0.0-2.0); EOSINOPHIL # 0.2 TH/MM3 (0-0.4); EOSINOPHIL % 1.7 % (0.0-4.0); HEMATOCRIT 32.4 % (35.0-46.0); HEMO FLAGS DIFF FINAL; LYMPH % 19.6 % (9.0-44.0); MEAN CELL VOLUME 80.8 FL (80.0-100.0); MEAN CORPUSCULAR HEMOGLOBIN 25.4 PG (27.0-34.0); MEAN CORPUSCULAR HGB CONC 31.5 % (32.0-36.0); MONO % 7.5 % (0.0-8.0); NEUT % 70.7 % (16.0-70.0); PLATELET COUNT 595 TH/MM3 (150-450); RED BLOOD COUNT 4.01 MIL/MM3 (4.00-5.30); RED CELL DISTRIBUTION WIDTH 15.5 % (11.6-17.2); WHITE BLOOD COUNT 10.1 TH/MM3 (4.0-11.0)
[2016-07-27 06:16] LABS: BICARBONATE 24.3 MEQ/L (21.0-32.0); MAGNESIUM 2.2 MG/DL (1.5-2.5); POTASSIUM 3.5 MEQ/L (3.5-5.1)
[2016-07-27] MEDS: SUCRALFATE 1 GM/10 ML CUP PO SCH (06:23)
[2016-07-27] MEDS: SODIUM CHLOR 0.9% 1000 ML INJ 1,000 ML IV SCH (06:25)
[2016-07-27 08:00] VITALS: BP 160/92; PULSE 90; RESP 18; TEMP 97.5; O2SAT 95
[2016-07-27] MEDS: METOPROLOL TARTRATE 25 MG TAB PO SCH (08:24)
[2016-07-27] MEDS: amLODIPine BESYLATE 5 MG TAB PO SCH (08:24)
[2016-07-27] MEDS: SODIUM CHLORIDE 0.9% FLUSH 5 ML FLUSH FLUSH SCH (08:25)
[2016-07-27] MEDS ORDERED: ACETAMINOPHEN 325 MG TAB PO PRN (08:30)
[2016-07-27] MEDS ORDERED: ENOXAPARIN SODIUM 60 MG/0.6 ML SYRINGE SQ SCH ×2 (08:45→10:00)
[2016-07-27] MEDS ORDERED: PANTOPRAZOLE SOD 40 MG DELAYED RELEASE TAB PO SCH (09:00)
--- NOTE | 2016-07-27 10:10 | HHI.FF ---
Face to Face Verification Diagnosis: (1) Pulmonary embolism (2) Heme positive stool (3) Symptomatic anemia (4) Acute blood loss anemia (5) GI bleeding (6) Physical deconditioning Physical Therapy Order: Evaluate and Treat Home Health Nursing Order: Medical education Nursing assessment with vital signs Instructions: CBC q sunday - call Dr. Barajas with results I have seen patient Janet Singh on 07/27/16. My clinical findings support the need for the requested home health care services because: Ltd mobility - disease progression Limited ability to care for self Need for psychosocial assistance I certify that my clinical findings support that this patient is homebound because: Unsafe to leave home unassisted Need for psychosocial assistance Miriam Berg MD Jul 27, 2016 10:10
[2016-07-27] MEDS ORDERED: SUCR1S PO (10:23)
[2016-07-27] MEDS ORDERED: PANT40TA3 PO (10:23)
[2016-07-27] MEDS ORDERED: ENOX60P SQ (10:23)
--- NOTE | 2016-07-27 10:24 | HHI.DS ---
Discharge Summary Admission Date Jul 25, 2016 at 11:33 Discharge Date: Jul 27, 2016 Admitting Diagnosis GI bleed, symptomatic anemia (1) Symptomatic anemia ICD Code: D64.9 Diagnosis: Principal (2) Heme positive stool ICD Code: R19.5 Diagnosis: Principal (3) Hypertension ICD Code: I10 Diagnosis: Secondary (4) Pulmonary embolism ICD Code: I26.99 Diagnosis: Secondary (5) Hypothyroidism ICD Code: E03.9 Diagnosis: Secondary (6) GERD (gastroesophageal reflux disease) ICD Code: K21.9 (7) Leucocytosis ICD Code: D72.829 Diagnosis: Secondary Procedures EGD Colonoscopy Brief History - From Admission 85 year-old female with known history of hypertension, hypothyroidism , gastroesophageal reflux, sick sinus syndrome status post permanent pacemaker placement , pulmonary emboli who presented to hospital because of generalized weakness. Patient is known to me from previous admission. Patient states that she just has not had any injuries since she was admitted back in April and diagnosed with pneumonia. Subsequently since then she has had previous admission in found to have pulmonary emboli and started on Eliquis. Patient states that she has had dark color stools ever since then. Records indicate the patient has had outpatient Hemoccult done on 07/05/16 which was positive, requested by Dr. Lopez. Patient states that she has had no energy, no appetite, cough. Patient had workup done emergency department found to have hemoglobin of 7.9. Heme positive stools found in the emergency department. CBC/BMP: 07/27/16 0515 07/27/16 0515 Significant Findings Laboratory Tests Test 07/25/16 07/25/16 07/25/16 07/25/16 10:50 11:33 17:40 22:50 White Blood Count 18.6 TH/MM3 (4.0-11.0) Red Blood Count 3.00 MIL/MM3 (4.00-5.30) Hemoglobin 7.9 GM/DL 7.4 GM/DL 7.2 GM/DL (11.6-15.3) (11.6-15.3) (11.6-15.3) Hematocrit 24.7 % 23.1 % 22.6 % (35.0-46.0) (35.0-46.0) (35.0-46.0) Mean Corpuscular Hemoglobin 26.3 PG (27.0-34.0) Mean Corpuscular Hemoglobin 31.9 % Concent (32.0-36.0) Platelet Count 792 TH/MM3 (150-450) Mean Platelet Volume 6.6 FL (7.0-11.0) Neutrophils (%) (Auto) 76.3 % (16.0-70.0) Neutrophils # (Auto) 14.2 TH/MM3 (1.8-7.7) Monocytes # (Auto) 1.2 TH/MM3 (0-0.9) Ovalocytes 1+ (NORMAL) Blood Urea Nitrogen 20 MG/DL (7-18) Estimat Glomerular Filtration 65 ML/MIN (>89) Rate Random Glucose 114 MG/DL (74-106) Total Protein 6.3 GM/DL (6.4-8.2) Albumin 2.7 GM/DL (3.4-5.0) Urine Ketones 80 OR GREATER mg/dL (NEG) Urine Bacteria FEW /hpf (NONE) Test 07/26/16 07/26/16 07/26/16 07/27/16 05:00 08:40 19:16 05:15 White Blood Count 11.9 TH/MM3 (4.0-11.0) Red Blood Count 2.53 MIL/MM3 (4.00-5.30) Hemoglobin 6.6 GM/DL 10.5 GM/DL 10.2 GM/DL (11.6-15.3) (11.6-15.3) (11.6-15.3) Hematocrit 20.8 % 32.5 % 32.4 % (35.0-46.0) (35.0-46.0) (35.0-46.0) Mean Corpuscular Hemoglobin 26.1 PG 25.4 PG (27.0-34.0) (27.0-34.0) Mean Corpuscular Hemoglobin 31.8 % 31.5 % Concent (32.0-36.0) (32.0-36.0) Platelet Count 550 TH/MM3 595 TH/MM3 (150-450) (150-450) Mean Platelet Volume 6.5 FL 6.1 FL (7.0-11.0) (7.0-11.0) Neutrophils (%) (Auto) 72.4 % 70.7 % (16.0-70.0) (16.0-70.0) Neutrophils # (Auto) 8.5 TH/MM3 (1.8-7.7) Iron Level 16 MCG/DL (50-170) Percent Iron Saturation 4.9 % (20-50) Vitamin B12 Level 2809 PG/ML (193-986) Chloride Level 109 MEQ/L (98-107) Estimat Glomerular Filtration 86 ML/MIN (>89) Rate Calcium Level 7.5 MG/DL (8.5-10.1) PE at Discharge GENERAL: Well-developed, well-nourished, in no acute distress. alert and orientated HEENT: Head is normocephalic without any lesions or masses noted. Facial features are symmetric. Eyes: Extraocular muscles are intact. Conjunctivae were clear. NECK: Supple without any masses. Trachea midline no deviation. No JVD, CARDIAC: Regular rhythm, regular rate. S1/S2 are heard. No murmurs gallops or rubs. LUNGS: Clear auscultation bilaterally. No wheeze, rhonchi or rales. No use of accessory muscles on inspiration or expiration. ABDOMEN: Soft, nontender. Nondistended. Bowel sounds heard in all 4 quadrants. No organomegaly or masses. Negative rebound, negative guarding EXTREMITIES: No edema, pulses are equal bilaterally. No cyanosis or clubbing NEUROLOGY: Mood and affect appear appropriate. Cranial nerves II through XII grossly intact. Moving all extremities, speech is clear Hospital Course The patient was admitted to the hospital. She underwent EGD which showed severe esophagitis, also a polyp in the rectum which was not removed because of the patient being on Eliquis. The patient was transfused 2 units packed red blood cells with improvement of hemoglobin to 10. She had no further bleeding. Hematology was consulted who recommended changing her from Eliquis to Coumadin. The patient will need a repeat colonoscopy as an outpatient within the next several weeks and I discussed with Dr. Plaza. Patient will be treated with Lovenox injections until after her repeat colonoscopy. After that she can then start on Coumadin with either her primary care physician monitoring of levels were hematology/Dr. Loza. I discussed these plans in detail with the patient and her daughter at bedside. Home health care is also being ordered for the patient. Pt Condition on Discharge: Stable Discharge Disposition: Disch w/ Home Health Serv Discharge Time: > 30 minutes Discharge Instructions DIET: Follow Instructions for: Heart Healthy Diet Activities you can perform: Regular-No Restrictions Follow up Referrals: Gastroenterology - 1 Week with Devendra Plaza MD PCP Follow-up - 1 Week New Medications: Enoxaparin Inj (Lovenox Inj) 60 Mg/0.6 Ml Syr 60 MG SQ DAILY@10,22 PE Days 30 INJECTION Pantoprazole (Pantoprazole) 40 Mg Tab 40 MG PO DAILY esophagitis #30 TAB Sucralfate Liq (Sucralfate Liq) 1 Gm/10 Ml Molly 1 GM PO ACHS esophagitis Days 30 BOTTLE Continued Medications: Amlodipine (Amlodipine) 5 Mg Tab 5 MG PO DAILY Blood Pressure Management #30 Ref 0 TAB Clonidine (Clonidine) 0.1 Mg Tab 0.1 MG PO TID PRN SBP>160, DBP>90 #60 Ref 0 TAB Hydrochlorothiazide (Hydrochlorothiazide) 12.5 Mg Tab 12.5 MG PO DAILY #30 Ref 0 TAB Losartan (Losartan) 100 Mg Tab 100 MG PO DAILY Blood Pressure Management #30 Ref 0 TAB Metoprolol Tartrate (Metoprolol Tartrate) 25 Mg Tab 25 MG PO DAILY #30 Ref 0 TAB Discontinued Medications: Apixaban (Eliquis) 5 Mg Tab 5 MG PO BID Blood Clot Prevention #60 Ref 0 TAB Miriam Berg MD Jul 27, 2016 10:24
[2016-07-27 12:00] VITALS: BP 130/69; PULSE 80; RESP 20; TEMP 96.9; O2SAT 97
== END 2016-07-27 13:18 | disposition home health service (06) | DRG 378 ==
LOC: PHED 10:05 → PHEDA 11:33 → PH3A 12:25
PROVIDERS: ADMIT Family Medicine; ATTEND Family Medicine
PROC: 30233N1 Transfusion of Nonautologous Red Blood Cells into Peripheral Vein, Percutaneous Approach (ICD-10-PCS; 2016-07-26)
PROC: 0DJD8ZZ Inspection of Lower Intestinal Tract, Via Natural or Artificial Opening Endoscopic (ICD-10-PCS; principal; 2016-07-26 06:55)
PROC: 0DJ08ZZ Inspection of Upper Intestinal Tract, Via Natural or Artificial Opening Endoscopic (ICD-10-PCS; 2016-07-26 06:55)
DX: K92.2 Gastrointestinal hemorrhage, unspecified (principal); D62 Acute posthemorrhagic anemia; I49.5 Sick sinus syndrome; I15.9 Secondary hypertension, unspecified; E03.9 Hypothyroidism, unspecified; G47.30 Sleep apnea, unspecified; K21.0 Gastro-esophageal reflux disease with esophagitis; H91.93 Unspecified hearing loss, bilateral; R26.81 Unsteadiness on feet; M19.90 Unspecified osteoarthritis, unspecified site; D72.829 Elevated white blood cell count, unspecified; K22.70 Barrett's esophagus without dysplasia; H40.9 Unspecified glaucoma; K62.1 Rectal polyp; Z87.891 Personal history of nicotine dependence; Z95.0 Presence of cardiac pacemaker; Z79.02 Long term (current) use of antithrombotics/antiplatelets; Z86.711 Personal history of pulmonary embolism
CPT/HCPCS: 36430; 80048; 80053; 81001; 82607; 82728; 82746; 83540; 83550; 83735; 85014; 85018; 85025; 86850; 86900; 86901; 86920; 87086; 93005; 99285; C9113; J1650; J7030; J7050; P9016

== ENCOUNTER 2016-08-30 16:02 | Emergency (ER) | payer MEDICARE, BC ==
[~2016-08-30] VITALS: Ht 162.6 cm; Wt 60.7 kg
[~2016-08-30 16:02] MED LIST changes: -AMBI10TA PO; -APIX5TAB PO; -CIPR250T2 PO; +ENOX60P SQ; +HYDR12.56 PO; -LATA0.002 EACH EYE; -LEVO.1 PO; +METO25TA3 PO; -NEXI40CA PO; +PANT40TA3 PO; +SUCR1S PO
[2016-08-30 16:09] VITALS: BP 184/85; PULSE 114; RESP 18; TEMP 98; O2SAT 100
[2016-08-30] MEDS ORDERED: APIX5TAB PO (16:33)
--- NOTE | 2016-08-30 17:03 | PD ---
HPI Chief Complaint: Abnormal Results Time Seen by Provider: 16:17 Travel History International Travel<30 days: No Contact w/Intl Traveler<30days: No Traveled to known affect area: No History of Present Illness HPI This patient had an outpatient blood draw yesterday that showed a hemoglobin of 7.9. She received a call today from her physician to come to the emergency room. Patient has been battling a combination of GI bleed with diagnosis of recent PE. After consultation with hematology and gastroenterology she was placed on Eliquis. She denies any knowledge of bleeding or melena today. She has chronic fatigue and generalized weakness but feels no different than her usual symptoms. Symptoms severity is mild. No alleviating factors. 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) GERD: Yes Genitourinary: Yes Headaches: Yes Hiatal Hernia: Yes Heparin Induced Thrombocytopen: No Hypertension: Yes Immune Disorder: No Implanted Vascular Access Dvce: Yes Kidney Stones: No Musculoskeletal: Yes Neurologic: Yes Psychiatric: No Reproductive: No Respiratory: Yes (PULMONARY EMBOLISMS ) Immunizations Current: Yes Migraines: No Radiation Therapy: No Renal Failure: No Seizures: No Sickle Cell Disease: No Sleep Apnea: Yes Thyroid Disease: Yes Ulcer: Yes ?: Not Past Surgical History Abdominal Surgery: Yes (ABDOMINAL TUMOR REMOVED) AICD: No Arteriovenous Shunt: No Cardiac Surgery: Yes (pace maker insertion) Ear Surgery: No Endocrine Surgery: Yes Eye Surgery: No Genitourinary Surgery: Yes Gynecologic Surgery: Yes (HYSTERECTOMY) Hysterectomy: Yes Insulin Pump: No Joint Replacement: No Neurologic Surgery: No Oral Surgery: No Pacemaker: Yes (DEMAND) Thoracic Surgery: No Other Surgery: Yes Social History Alcohol Use: No Tobacco Use: No (FORMER) Substance Use: No Allergies-Medications (Allergen,Severity, Reaction): Coded Allergies: No Known Allergies (Verified , 08/30/16) Reported Meds & Prescriptions Reported Meds & Active Scripts Active Sucralfate Liq (Sucralfate) 1 Gm/10 Ml Molly 1 Gm PO ACHS 30 Days Pantoprazole (Pantoprazole Sodium) 40 Mg Tab 40 Mg PO DAILY Reported Eliquis (Apixaban) 5 Mg Tab 2.5 Mg PO BID Losartan (Losartan Potassium) 100 Mg Tab 100 Mg PO DAILY Metoprolol Tartrate 25 Mg Tab 25 Mg PO DAILY Hydrochlorothiazide 12.5 Mg Tab 12.5 Mg PO DAILY Amlodipine (Amlodipine Besylate) 5 Mg Tab 2.5 Mg PO BID Clonidine (Clonidine HCl) 0.1 Mg Tab 0.1 Mg PO TID PRN Review of Systems General / Constitutional: No: Fever Eyes: No: Visual changes HENT: No: Headaches Cardiovascular: No: Chest Pain or Discomfort Respiratory: No: Shortness of Breath Gastrointestinal: No: Abdominal Pain Genitourinary: No: Dysuria Musculoskeletal: Positive: Weakness, No: Pain Skin: No Rash Neurologic: Positive: Weakness Psychiatric: No: Depression Endocrine: No: Polydipsia Hematologic/Lymphatic: No: Easy Bruising Physical Exam Narrative GENERAL: Well-nourished, well-developed patient in no apparent distress. SKIN: Warm and dry. HEAD: Atraumatic. Normocephalic. EYES: Pupils equal and round. No scleral icterus. No injection or drainage. ENT: No nasal bleeding or discharge. Mucous membranes pink and moist. NECK: Trachea midline. No JVD. CARDIOVASCULAR: Regular rate and rhythm. No murmur appreciated. RESPIRATORY: No accessory muscle use. Clear to auscultation. Breath sounds equal bilaterally. GASTROINTESTINAL: Abdomen soft, non-tender, nondistended. Hepatic and splenic margins not palpable. MUSCULOSKELETAL: No obvious deformities. No clubbing. No cyanosis. No edema. NEUROLOGICAL: Awake and alert. No obvious cranial nerve deficits. Motor grossly within normal limits. Normal speech. PSYCHIATRIC: Appropriate mood and affect; insight and judgment normal. Rectal: Normal tone, no mass Data Data Last Documented VS Vital Signs Date Time Temp Pulse Resp B/P Pulse Ox O2 Delivery O2 Flow Rate FiO2 08/30/16 18:25 92 16 186/48 99 Room Air 08/30/16 16:09 98.0 Orders Iv Access Insert/Monitor (08/30/16 16:28) Complete Blood Count With Diff (08/30/16 16:28) Basic Metabolic Panel (Bmp) (08/30/16 16:28) Prothrombin Time / Inr (Pt) (08/30/16 16:28) Act Partial Throm Time (Ptt) (08/30/16 16:28) Type And Screen (08/30/16 16:28) Labs Laboratory Tests Test 08/30/16 16:45 White Blood Count 12.0 TH/MM3 Red Blood Count 3.47 MIL/MM3 Hemoglobin 8.9 GM/DL Hematocrit 27.7 % Mean Corpuscular Volume 79.8 FL Mean Corpuscular Hemoglobin 25.7 PG Mean Corpuscular Hemoglobin 32.2 % Concent Red Cell Distribution Width 15.9 % Platelet Count 512 TH/MM3 Mean Platelet Volume 7.2 FL Neutrophils (%) (Auto) 77.9 % Lymphocytes (%) (Auto) 12.4 % Monocytes (%) (Auto) 7.6 % Eosinophils (%) (Auto) 0.6 % Basophils (%) (Auto) 1.5 % Neutrophils # (Auto) 9.3 TH/MM3 Lymphocytes # (Auto) 1.5 TH/MM3 Monocytes # (Auto) 0.9 TH/MM3 Eosinophils # (Auto) 0.1 TH/MM3 Basophils # (Auto) 0.2 TH/MM3 CBC Comment DIFF FINAL Differential Comment Prothrombin Time 11.8 SEC Prothromb Time International 1.1 RATIO Ratio Activated Partial 24.8 SEC Thromboplast Time Sodium Level 139 MEQ/L Potassium Level 4.0 MEQ/L Chloride Level 103 MEQ/L Carbon Dioxide Level 25.9 MEQ/L Anion Gap 10 MEQ/L Blood Urea Nitrogen 21 MG/DL Creatinine 0.92 MG/DL Estimat Glomerular Filtration 58 ML/MIN Rate Random Glucose 123 MG/DL Calcium Level 9.0 MG/DL [facility] Medical Decision Making Medical Screen Exam Complete: Yes Emergency Medical Condition: Yes Medical Record Reviewed: Yes Differential Diagnosis Symptomatic anemia, GI bleed, general malaise Narrative Course I have reviewed the patient's electronic medical record. Reviewed her recent inpatient evaluation as well as GI and hematology consultations. IV placed Type and screen sent CBC shows hemoglobin of 8.9, significantly better than yesterday is 7.9 report Metabolic profile is normal Coagulation studies are normal Had a lengthy discussion with the patient. She does not require emergent transfusion. She in fact is minimally symptomatic and at baseline. She rather go home. I don't see any indication for hospitalization. She knows that she is at risk for GI bleed and worsening anemia given her blood thinner but that's been the central question for the last few weeks. She is planning to get outpatient colonoscopy in the near future. Also, there is no evidence of active bleeding today. Stool is brown and Hemoccult negative. She denies any bleeding or melena HemaPrompt Point of Care Internal Pos. & Neg. Controls: Passed Fecal Specimen Occult Blood: Negative Diagnosis Primary Impression: Symptomatic anemia Additional Instructions: The patient was advised to follow up with their physician and return if they worsen. Med/Other Pt SpecificInfo: Other Disposition: 01 DISCHARGE HOME Condition: Stable Suraj Cueto MD Aug 30, 2016 17:03
[2016-08-30 17:04] LABS: AUTOMATED NEUTROPHIL # 9.3 TH/MM3 (1.8-7.7); BASOPHIL # 0.2 TH/MM3 (0-0.2); BASOPHIL % 1.5 % (0.0-2.0); EOSINOPHIL # 0.1 TH/MM3 (0-0.4); EOSINOPHIL % 0.6 % (0.0-4.0); HEMATOCRIT 27.7 % (35.0-46.0); LYMPH % 12.4 % (9.0-44.0); LYMPHOCYTE # 1.5 TH/MM3 (1.0-4.8); MEAN CELL VOLUME 79.8 FL (80.0-100.0); MEAN CORPUSCULAR HEMOGLOBIN 25.7 PG (27.0-34.0); MEAN CORPUSCULAR HGB CONC 32.2 % (32.0-36.0); MONO % 7.6 % (0.0-8.0); NEUT % 77.9 % (16.0-70.0); PLATELET COUNT 512 TH/MM3 (150-450); RED BLOOD COUNT 3.47 MIL/MM3 (4.00-5.30); RED CELL DISTRIBUTION WIDTH 15.9 % (11.6-17.2)
[2016-08-30 17:08] LABS: BICARBONATE 25.9 MEQ/L (21.0-32.0)
[2016-08-30 17:09] LABS: HEMO FLAGS DIFF FINAL
[2016-08-30 17:11] LABS: APTT (PATIENT) 24.8 SEC (24.3-30.1); INTERNATIONAL NORMALIZED RATIO 1.1 RATIO; PROTHROMBIN TIME - PATIENT 11.8 SEC (9.8-11.6)
[2016-08-30 17:19] VITALS: BP 170/71; PULSE 82; RESP 16; O2SAT 98
[2016-08-30 18:25] VITALS: BP 186/48; PULSE 92; RESP 16; O2SAT 99
[2016-08-30 19:18] VITALS: BP 191/86
== END 2016-08-30 19:37 | disposition home or self-care (01) ==
LOC: PHED 16:02
DX: D64.9 Anemia, unspecified (principal); H91.93 Unspecified hearing loss, bilateral; I10 Essential (primary) hypertension; Z86.711 Personal history of pulmonary embolism; Z95.0 Presence of cardiac pacemaker
CPT/HCPCS: 80048; 85025; 85610; 85730; 86850; 86900; 86901; 99283

== ENCOUNTER 2017-07-12 03:12 | Emergency (ER) | payer MEDICARE, BC ==
[~2017-07-12] VITALS: Ht 160 cm; Wt 64.0 kg
[~2017-07-12 03:12] MED LIST changes: +APIX5TAB PO; -ENOX60P SQ
--- NOTE | 2017-07-12 03:16 | PD ---
HPI Chief Complaint: right shoulder pain Time Seen by Provider: 03:13 Travel History International Travel<30 days: No Contact w/Intl Traveler<30days: No Traveled to known affect area: No History of Present Illness HPI Patient tripped and fell at her house and has severe pain in her right shoulder paramedics arrived to find slightly deformed normal pulse normal sensation she is given 2 morphine without relief and 2 more morphine up to a total of 10 mg and 4 of Zofran and another 4 of Zofran in the ER she seems comfortable and she is in a sling with a normal pulse and sensation in the right hand. 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) GERD: Yes Genitourinary: Yes Headaches: Yes Hiatal Hernia: Yes Heparin Induced Thrombocytopen: No Hypertension: Yes Immune Disorder: No Implanted Vascular Access Dvce: Yes Kidney Stones: No Musculoskeletal: Yes Neurologic: Yes Psychiatric: No Reproductive: No Respiratory: Yes (PULMONARY EMBOLISMS ) Immunizations Current: Yes Migraines: No Radiation Therapy: No Renal Failure: No Seizures: No Sickle Cell Disease: No Sleep Apnea: Yes Thyroid Disease: Yes Ulcer: Yes Past Surgical History Abdominal Surgery: Yes (ABDOMINAL TUMOR REMOVED) AICD: No Arteriovenous Shunt: No Cardiac Surgery: Yes (pace maker insertion) Ear Surgery: No Endocrine Surgery: Yes Eye Surgery: No Genitourinary Surgery: Yes Gynecologic Surgery: Yes (HYSTERECTOMY) Hysterectomy: Yes Insulin Pump: No Joint Replacement: No Neurologic Surgery: No Oral Surgery: No Pacemaker: Yes (DEMAND) Thoracic Surgery: No Other Surgery: Yes Social History Alcohol Use: No Tobacco Use: No (FORMER) Substance Use: No Allergies-Medications (Allergen,Severity, Reaction): Coded Allergies: No Known Allergies (Verified , 08/30/16) Reported Meds & Prescriptions Reported Meds & Active Scripts Active Ibuprofen 600 Mg Tab 600 Mg PO Q6H PRN Percocet (Oxycodone-Acetaminophen) 5-325 mg Tab 1 Tab PO Q6H PRN Sucralfate Liq (Sucralfate) 1 Gm/10 Ml Molly 1 Gm PO ACHS 30 Days Pantoprazole (Pantoprazole Sodium) 40 Mg Tab 40 Mg PO DAILY Reported Nexium (Esomeprazole DR) 20 Mg Capdr 20 Mg PO DAILY Zolpidem (Zolpidem Tartrate) 10 Mg Tab 10 Mg PO HS PRN Losartan (Losartan Potassium) 100 Mg Tab 100 Mg PO DAILY Metoprolol Tartrate 25 Mg Tab 25 Mg PO DAILY Hydrochlorothiazide 12.5 Mg Tab 12.5 Mg PO DAILY Amlodipine (Amlodipine Besylate) 5 Mg Tab 2.5 Mg PO BID Clonidine (Clonidine HCl) 0.1 Mg Tab 0.1 Mg PO TID PRN Review of Systems Except as stated in HPI: all other systems reviewed are Neg Musculoskeletal: Positive: Myalgias (right shoulder deformity and possible dislocation) Physical Exam Narrative GENERAL: Nontoxic awake alert in no severe to pain arm in sling right SKIN: Warm and dry. HEAD: Atraumatic. Normocephalic. EYES: Pupils equal and round. No scleral icterus. No injection or drainage. ENT: No nasal bleeding or discharge. Mucous membranes pink and moist. NECK: Trachea midline. No JVD. CARDIOVASCULAR: Regular rate and rhythm. RESPIRATORY: No accessory muscle use. Clear to auscultation. Breath sounds equal bilaterally. GASTROINTESTINAL: Abdomen soft, non-tender, nondistended. Hepatic and splenic margins not palpable. MUSCULOSKELETAL: Extremities right arm has tenderness in mid shaft there is no deformity at the glenoid fossa No obvious deformities. NEUROLOGICAL: Awake and alert. No obvious cranial nerve deficits. Motor grossly within normal limits. Five out of 5 muscle strength in the arms and legs. Normal speech. PSYCHIATRIC: Appropriate mood and affect; insight and judgment normal. Data Data Last Documented VS Vital Signs Date Time Temp Pulse Resp B/P (MAP) Pulse Ox O2 Delivery O2 Flow Rate FiO2 07/12/17 06:33 07/12/17 06:14 18 07/12/17 05:52 78 100 Room Air 07/12/17 04:48 2.00 07/12/17 03:18 98.2 Orders Orders Shoulder, Limited(2vws) (07/12/17 ) Propofol 500 Mg/50 Ml Inj (Diprivan 500 (07/12/17 04:00) Hydromorphone Pf Inj (Dilaudid Pf Inj) (07/12/17 04:00) Shoulder, One View (07/12/17 ) Orthostatic Vital Signs (07/12/17 05:56) Ed Discharge Order (07/12/17 06:17) [facility] Medical Decision Making Medical Screen Exam Complete: Yes Emergency Medical Condition: Yes Differential Diagnosis Right shoulder contusion versus right humerus contusion versus right midshaft fracture versus right humeral head fracture versus dislocation Narrative Course Right shoulder dislocation conscious sedation done with propofol and Dilaudid patient tolerates procedure well traction countertraction eversion successful reduction Procedures Procedure Narrative Right shoulder dislocation reduction by viviana Huerta with conscious sedation propofol and Dilaudid. Traction countertraction inversion and then hyperflexion shoulder pops into place post reduction films show a intact in place shoulder reduction tolerated procedure well is awake alert satting well Diagnosis Primary Impression: Dislocation Additional Impression: Shoulder dislocation Qualified Codes: S43.004A - Unspecified dislocation of right shoulder joint, initial encounter Referrals: Crow Gill MD Patient Instructions: General Instructions, Shoulder Dislocation (ED) Med/Other Pt SpecificInfo: Orthopedic Instructions Scripts Ibuprofen (Ibuprofen) 600 Mg Tab 600 MG PO Q6H Y for Pain/Inflammation, #20 TAB 0 Refills Prov: Kg Reid MD 07/12/17 Oxycodone-Acetaminophen (Percocet) 5-325 mg Tab 1 TAB PO Q6H Y for PAIN, #10 TAB 0 Refills Prov: Kg Reid MD 07/12/17 Disposition: 01 DISCHARGE HOME Condition: Good Kg Reid MD Jul 12, 2017 03:16
[2017-07-12 03:18] VITALS: BP 190/77; PULSE 75; RESP 20; TEMP 98.2; O2SAT 96
[2017-07-12] MEDS ORDERED: NEXI20CA PO (03:48)
[2017-07-12] MEDS ORDERED: ZOLP10TA3 PO (03:48)
[2017-07-12 04:00] VITALS: O2SAT 100
[2017-07-12] MEDS ORDERED: HYDROmorphone HCL PF 2 MG/ML VIAL IV PUSH ONE (04:00)
[2017-07-12] MEDS ORDERED: PROPOFOL 500 MG/50 ML BTL IV ONE (04:00)
--- NOTE | 2017-07-12 04:22 | RADRPT ---
EXAM DATE/TIME: 07/12/2017 03:28 [facility] COMPARISON: No previous studies available for comparison. INDICATIONS : Right shoulder pain post fall today MEDICAL HISTORY : None. SURGICAL HISTORY : None. ENCOUNTER: Initial ACUITY: 1 day PAIN SCORE: 8/10 LOCATION: Right shoulder FINDINGS: There is anterior dislocation of the right humeral head at the glenohumeral joint. No fracture is see n. The acromioclavicular joint is normally aligned. There is a pacemaker seen in the right chest. CONCLUSION: Anterior dislocation of the humeral head. Caleb Mcqueen MD on July 12, 2017 at 4:19 Board Certified Radiologist. This report was verified electronically.
[2017-07-12 04:48] VITALS: BP 169/70; PULSE 75; RESP 18; O2SAT 100
--- NOTE | 2017-07-12 05:01 | RADRPT ---
EXAM DATE/TIME: 07/12/2017 04:19 [facility] COMPARISON: SHOULDER RIGHT LTD (2VWS), July 12, 2017, 3:28. INDICATIONS : Post reduction MEDICAL HISTORY : None. SURGICAL HISTORY : None. ENCOUNTER: Initial ACUITY: 1 day PAIN SCORE: Non-responsive. LOCATION: Right shoulder FINDINGS: There is been successful reduction of the previously seen anterior right humeral dislocation. The gle nohumeral and acromioclavicular joints are normally aligned. There is a right-sided pacemaker seen. CONCLUSION: Successful reduction. Caleb Mcqueen MD on July 12, 2017 at 4:59 Board Certified Radiologist. This report was verified electronically.
[2017-07-12 05:52] VITALS: BP 168/72; PULSE 78; RESP 19; O2SAT 100
[2017-07-12] MEDS ORDERED: IBUP-232 PO (06:10)
[2017-07-12] MEDS ORDERED: PERC5TAB12 PO (06:10)
[2017-07-12 06:14] VITALS: BP_SYST 175; BP_SYST 190; BP_DIAS 75; BP_DIAS 84; RESP 18
== END 2017-07-12 06:45 | disposition home or self-care (01) ==
LOC: NEPC 03:12
DX: S43.004A Unspecified dislocation of right shoulder joint, initial encounter (principal); W01.0XXA Fall on same level from slipping, tripping and stumbling without subsequent striking against object, initial encounter; Y92.009 Unspecified place in unspecified non-institutional (private) residence as the place of occurrence of the external cause
CPT/HCPCS: 23650; 73020; 73030; 96374; 99152; 99285; J1170